=== PATIENT | female | born 1990 | race Two or more races ===

== ENCOUNTER → 2024-09-13 | Outpatient (CLI) | payer MEDICAID, SELFPAY ==
--- NOTE | 2024-09-13 13:30 | XR_ITS ---
Examination: Breast ultrasound complete, bilateral Date and time of exam: September 14, 2019 0514 hrs. Indications: Right breast pain beginning 2 years ago at discharge Technique: Real-time grayscale ultrasonographic imaging bilateral breasts, including all 4 quadrants as well as nipple retroareolar and axillary regions. Findings: No cystic or solid mass involving either breast Impression: BI-RADS Category 1: Negative studies
== END | disposition home or self-care (01) ==
PROVIDERS: PCP Physician Assistant; Referring Provider Physician Assistant; Visit Provider Physician Assistant
DX: N64.4 Mastodynia (principal)
CPT/HCPCS: 76641

== ENCOUNTER 2025-04-22 10:46 | Emergency (ER) | payer MEDICAID, SELFPAY ==
[2025-04-22 10:47] VITALS: BMI 32.4
[2025-04-22 11:22] VITALS: BP 160/101; BP 170/98; PULSE 82; RESP 18; TEMP 36.7; O2SAT 100
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
[2025-04-22] MEDS: ONDANSETRON ODT 4 MG TABRAP PO (11:51)
[2025-04-22] MEDS: KETOROLAC INJ 30 MG/ML VIAL 15 MG IM (11:52)
== END 2025-04-22 12:13 | disposition home or self-care (01) ==
LOC: SERX 12:20
PROVIDERS: Emergency Provider Family Medicine
DX: H11.31 Conjunctival hemorrhage, right eye (principal)
CPT/HCPCS: 81001; 96372; 99281; J1885; Q0162

== ENCOUNTER 2025-06-18 08:50 | Emergency (ER) | payer OTHER, SELFPAY ==
[2025-06-18 09:12] VITALS: BMI 37.8
[2025-06-18 09:13] VITALS: BP 127/66; PULSE 65; RESP 19; TEMP 36.8; O2SAT 97
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
[2025-06-18 10:11] LABS: Basophils # (Auto) 0.0 Thou/mm3 (0.0-0.2); Basophils % (Auto) 0 % (0-2.5); Eosinophils # (Auto) 0.1 Thou/mm3 (0.0-0.5); Eosinophils % (Auto) 1 % (0-10); Hematocrit 43.2 % (36.0-46.0); Hemoglobin 14.5 g/dL (12.0-16.0); Immature Granulocytes Auto 0.02 Thou/mm3 (0.00-0.00); Lymphocytes # (Auto) 3.0 Thou/mm3 (1.0-4.8); Lymphocytes % (Auto) 32 % (10-50); Mean Corpuscular HGB Conc 33.6 g/dl (31.0-37.0); Mean Corpuscular Hemoglobin 29.4 pg (25.0-35.0); Mean Corpuscular Volume 88 fL (80-100); Monocytes # (Auto) 0.5 Thou/mm3 (0.0-0.8); Monocytes % (Auto) 5 % (0-12); Neutrophils # (Auto) 5.7 Thou/mm3 (1.8-7.7); Neutrophils % (Auto) 62 % (37-80); Nucleated Red Blood Cell # 0.00 Thou/mm3 (0.00-0.00); Nucleated Red Blood Cell % 0 /100 WBC (0); Platelet Count 307 Thou/mm3 (140-440); RDW Standard Deviation 41.9 fL (36.4-46.3); Red Blood Count 4.93 Miln/mm3 (4.00-5.20); White Blood Count 9.2 Thou/mm3 (3.6-11.0)
[2025-06-18 10:34] LABS: HCG,Qualitative Serum Negative
--- NOTE | 2025-06-18 10:38 | PC.NURSE ---
PROVIDER LESLIE SAID PT COULD BE DISCHARGED BEFORE LAB RESULTS ARE READY THE RESULTS WILL GO TO EMPLOYEE HEALTH FOR WORKER'S COMP.
[2025-06-18 10:40] LABS: Alanine Aminotransferase 12 U/L (10-49); Albumin, Serum 4.9 gm/dL (3.5-5.0); Albumin/Globulin Ratio 1.5 (1.2-2.2); Alkaline Phosphatase 117 U/L (46-116); Anion Gap 10 (7-16); Aspartate Amino Transferase 19 U/L (0-34); BUN/Creatinine Ratio 15 Ratio (12-20); Bilirubin,Total 1.3 mg/dL (0.3-1.2); Blood Urea Nitrogen 12 mg/dL (9-23); Calcium 9.7 mg/dL (8.3-10.6); Calcium (Corrected) 9.7 mg/dL (8.5-10.1); Carbon Dioxide 26.5 mMol/L (20.0-31.0); Chloride 105 mMol/L (98-107); Creatinine (Component) 0.8 mg/dL (0.6-1.3); Estimated Creatinine Clearance 113.8 mL/min (>60); Globulin 3.3 gm/dL (2.3-3.5); Glucose 90 mg/dL (74-106); Osmolality,Calculated 280 (275-295); Potassium 4.0 mMol/L (3.4-5.1); Sodium 141 mMol/L (136-145); Total Protein 8.2 gm/dL (5.7-8.2); eGFR > 60 See Note
[2025-06-18 11:19] LABS: Hepatitis B Surface Ab Reactive (Immune) (Immune); Hepatitis B Surface Antigen Non Reactive (Non React); Hepatitis C Ab (Source Pt) Non Reactive (Non React); Hepatitis C Antibody Non Reactive (Non React)
[2025-06-18 11:25] LABS: HIV (1&2) Antibody Rapid Non-Reactive
[2025-06-18 15:22] LABS: HIV Rapid (Source Pt) Non-Reactive
== END 2025-06-18 10:40 | disposition home or self-care (01) ==
LOC: SERX 10:04
PROVIDERS: Physician Assistant; Emergency Provider Emergency Medicine
DX: Z77.21 Contact with and (suspected) exposure to potentially hazardous body fluids (principal); Y92.230 Patient room in hospital as the place of occurrence of the external cause; Y99.0 Civilian activity done for income or pay
CPT/HCPCS: 36415; 80053; 84703; 85025; 86703; 86706; 86803; 87340; 99282

== ENCOUNTER → 2025-06-27 | Outpatient (BNVA) | payer MEDICAID, SELFPAY | END | disposition home or self-care (01) | PROVIDERS: PCP Nurse Practitioner Family; Referring Provider Nurse Practitioner Family; Visit Provider Nurse Practitioner Family | DX: G43.009 Migraine without aura, not intractable, without status migrainosus (principal); F43.9 Reaction to severe stress, unspecified; T73 Effects of other deprivation | CPT/HCPCS: 99202; 99203 ==